=== PATIENT | female | born 1960 | race Caucasian/White ===

== ENCOUNTER 2018-06-02 15:38 | Emergency (ER) | payer MEDICAID ==
[~2018-06-02] VITALS: Ht 154.9 cm; Wt 127.3 kg
[2018-06-02 16:24] VITALS: Ht 154.9 cm; Wt 127.3 kg
[2018-06-02] MEDS ORDERED: TORADOL10 MG (16:26)
[2018-06-02] MEDS ORDERED: VALTREX1000 MG PO (16:56)
[2018-06-02] MEDS ORDERED: TORADOL10 MG PO (16:57)
[2018-06-02] MEDS ORDERED: NEURONTIN 300300 MG PO (16:57)
[2018-06-02 17:24] VITALS: BP 128/76
== END 2018-06-02 17:25 | disposition home or self-care (01) ==
LOC: D.ER 15:38
DX: B02.9 Zoster without complications (principal); E11.9 Type 2 diabetes mellitus without complications